=== PATIENT | male | born 1950 | race Caucasian/White ===

== ENCOUNTER 2018-10-12 10:48 | Emergency (ER) | payer OTHER, MEDICAID ==
[~2018-10-12] VITALS: Ht 188 cm; Wt 130.6 kg
[2018-10-12 11:32] VITALS: Ht 188 cm; Wt 130.6 kg
[2018-10-12 14:32] VITALS: BP 130/81
== END 2018-10-12 14:32 | disposition home or self-care (01) ==
LOC: ED 10:48
DX: S82.65XA Nondisplaced fracture of lateral malleolus of left fibula, initial encounter for closed fracture (principal); S20.219A Contusion of unspecified front wall of thorax, initial encounter; S09.8XXA Other specified injuries of head, initial encounter; I48.91 Unspecified atrial fibrillation; I10 Essential (primary) hypertension; E11.9 Type 2 diabetes mellitus without complications; Z90.49 Acquired absence of other specified parts of digestive tract; Z88.8 Allergy status to other drugs, medicaments and biological substances; Z88.5 Allergy status to narcotic agent; V87.8XXA Person injured in other specified noncollision transport accidents involving motor vehicle (traffic), initial encounter; Y93.I9 Activity, other involving external motion; Y92.413 State road as the place of occurrence of the external cause; Y99.8 Other external cause status